=== PATIENT | male | born 1960 | race Caucasian/White ===

== ENCOUNTER → 2021-03-20 08:54 | Outpatient (BNVA) | payer BC, SELFPAY | PROVIDERS: PCP Family Medicine; Visit Provider Internal Medicine Rheumatology | DX: K51.90 Ulcerative colitis, unspecified, without complications (principal); M07.60 Enteropathic arthropathies, unspecified site; Z79.899 Other long term (current) drug therapy; Z11.59 Encounter for screening for other viral diseases; Z11.1 Encounter for screening for respiratory tuberculosis; Z79.1 Long term (current) use of non-steroidal anti-inflammatories (NSAID); Z71.85 Encounter for immunization safety counseling; F17.200 Nicotine dependence, unspecified, uncomplicated | CPT/HCPCS: 99204 ==

== ENCOUNTER 2021-07-18 08:55 | Outpatient (CLI) | payer BC, SELFPAY ==
--- NOTE | 2021-07-18 09:05 | XR_ITS ---
WS: [id number] Lumbar spine with flexion, extension, and neutral lateral, 07/18/2021 Clinical Data: LOW BACK PAIN Comparison: None. Findings: No compression fractures or subluxation is seen. There is disc space narrowing at all lumbar levels. There is anterior osteoarthritic change L3-L5. No limitation of motion or subluxation is seen. XR/XR lumbar spine f/e only [id number] Impression: 1. Minimal degenerative disc narrowing at all levels. 2. Osteoarthritis L3-L5. 3. No limitation of motion or subluxation on flexion or extension.
--- NOTE | 2021-07-18 09:06 | XR_ITS ---
WS: [id number] Right ankle, 3 views, 07/18/2021 Clinical Data: PAIN IN RIGHT ANKLE Comparison: None. Findings: No fractures or dislocations are seen. There is osteoarthritic change of the right ankle with asymmet ry of the joint space. The anterior and posterior distal tibia shows a prominent spur. The lateral po rtion of the right ankle joint shows elevation compared to the medial portion. There is osteoarthrit ic spurring anteriorly, posteriorly and medially of the talus. There is an Achilles spur. The soft ti ssues are normal. XR/XR ankle RT min 3V* [id number] Impression: Moderate osteoarthritic change of the ankle joint especially spurring of the di stal tibia and the articular portions of the talus.
== END 2021-07-18 08:56 | disposition home or self-care (01) ==
LOC: RAD 08:57
PROVIDERS: PCP Family Medicine; Visit Provider Anesthesiology Pain Medicine
DX: M54.51 Vertebrogenic low back pain (principal); M25.571 Pain in right ankle and joints of right foot; M47.816 Spondylosis without myelopathy or radiculopathy, lumbar region
CPT/HCPCS: 72120; 73610

== ENCOUNTER → 2021-09-11 07:41 | Outpatient (BNVA) | payer BC, SELFPAY | PROVIDERS: PCP Family Medicine; Visit Provider Family Medicine | DX: Z00.00 Encounter for general adult medical examination without abnormal findings (principal); I10 Essential (primary) hypertension; E55.9 Vitamin D deficiency, unspecified; K51.90 Ulcerative colitis, unspecified, without complications; M19.90 Unspecified osteoarthritis, unspecified site; Z11.59 Encounter for screening for other viral diseases; Z79.899 Other long term (current) drug therapy | CPT/HCPCS: 80053; 80061; 82248; 82306; 85025; 86140; 86200; 86431; 86480; 86704; 86803; 87340 ==

== ENCOUNTER → 2022-03-12 13:16 | Outpatient (BNVA) | payer BC, SELFPAY | PROVIDERS: PCP Family Medicine; Visit Provider Family Medicine | DX: K51.90 Ulcerative colitis, unspecified, without complications (principal); M07.60 Enteropathic arthropathies, unspecified site; F98.8 Other specified behavioral and emotional disorders with onset usually occurring in childhood and adolescence; Z00.00 Encounter for general adult medical examination without abnormal findings; Z71.85 Encounter for immunization safety counseling; Z79.899 Other long term (current) drug therapy | CPT/HCPCS: 80053; 85025 ==

== ENCOUNTER → 2022-06-12 15:08 | Outpatient (BNVA) | payer BC, MEDICAID, SELFPAY | PROVIDERS: PCP Family Medicine; Visit Provider Internal Medicine Rheumatology | DX: Z79.899 Other long term (current) drug therapy (principal); M07.60 Enteropathic arthropathies, unspecified site; K51.90 Ulcerative colitis, unspecified, without complications; Z71.85 Encounter for immunization safety counseling | CPT/HCPCS: 36415; 72100; 80076; 82565; 85025; 85378; 86140 ==

== ENCOUNTER 2022-08-08 15:41 | Outpatient (CLI) | payer BC, MEDICAID, SELFPAY ==
--- NOTE | 2022-08-08 15:46 | XR_ITS ---
WS: [id number] EXAMINATION: XR knee LT 3V* [id number] REASON FOR EXAM: knee pain / swelling COMPARISON: None available. ORDER DATE: 08/08/2022 4:02 PM FINDINGS: There are marginal osteophytes associated with the tibial spines, patella and other articular margins with moderate medial and patellofemoral compartment narrowing. There is no sign of any acute fractur e or dislocation. XR/XR knee LT 3V* [id number] IMPRESSION: MEDIAL AND PATELLOFEMORAL COMPARTMENT NARROWING WITH OSTEOARTHRITIC CHANGES.
== END 2022-08-08 15:42 | disposition home or self-care (01) ==
LOC: RAD 15:46
PROVIDERS: PCP Family Medicine; Visit Provider Internal Medicine Rheumatology
DX: M17.12 Unilateral primary osteoarthritis, left knee (principal)
CPT/HCPCS: 73562

== ENCOUNTER 2022-11-28 16:03 | Outpatient (CLI) | payer BC, MEDICAID, SELFPAY ==
[2022-11-28 17:11] LABS: Basophils % 0.3 %; Eosinophils # 0.1 10^3/uL (0.0-0.8); Eosinophils % 0.9 %; Hematocrit 48.2 % (42.0-52.0); Hemoglobin 15.9 g/dL (11.7-16.6); Lymphocytes # 2.5 10^3/uL (0.8-4.8); Mean Corpuscular Volume 90.9 fl (80-94); Monocytes # 0.7 10^3/uL (0.2-0.9); Monocytes % 7.1 %; Neutrophils # 6.71 10^3/uL (1.8-7.7); Neutrophils % 66.4 %; Nucleated Red Blood Cells % 0 %; Platelet Count 308 10^3/cmm (130-400); Red Cell Distribution Width 12.4 % (12.1-15.1); White Blood Count 10.1 10^3/uL (4.0-10.0)
[2022-11-28 17:22] LABS: Alanine Aminotransferase 21 U/L (0-41); Albumin Level 4.3 g/dL (3.5-5.2); Alkaline Phosphatase 84 U/L (40-130); Aspartate Amino Transferase 17 U/L (0-40); C Reactive Protein 3.1 mg/L (0.0-4.9); Globulin 2.8 g/dL (1.3-4.6); Total Bilirubin 0.2 mg/dL (0.15-1.2); Total Protein 7.1 g/dL (6.6-8.7)
== END 2022-11-28 16:04 | disposition home or self-care (01) ==
PROVIDERS: PCP Family Medicine; Visit Provider Internal Medicine Rheumatology
DX: M07.60 Enteropathic arthropathies, unspecified site (principal); Z79.899 Other long term (current) drug therapy
CPT/HCPCS: 36415; 80076; 82565; 85025; 86140

== ENCOUNTER → 2023-04-16 15:52 | Outpatient (BNVA) | payer BC, MEDICAID, SELFPAY | PROVIDERS: PCP Family Medicine; Visit Provider Internal Medicine Rheumatology | DX: M25.562 Pain in left knee (principal); Z79.899 Other long term (current) drug therapy; M07.60 Enteropathic arthropathies, unspecified site | CPT/HCPCS: 36415; 73070; 73562; 73610; 80076; 82565; 85025; 85651; 86140 ==

== ENCOUNTER 2023-06-30 08:44 | Outpatient (CLI) | payer BC, MEDICAID, SELFPAY ==
[2023-06-30 09:26] LABS: Basophils % 0.4 %; Eosinophils # 0.1 10^3/uL (0.0-0.8); Eosinophils % 0.8 %; Hematocrit 46.9 % (37-53); Lymphocytes # 2.2 10^3/uL (0.8-4.8); Lymphocytes % 31.3 %; Mean Corpuscular HGB Conc 33.7 g/dL (30-55); Mean Corpuscular Hemoglobin 30.3 pg (27-33); Mean Corpuscular Volume 89.8 fl (82-101); Mean Platelet Volume 8.9 fL (7.4-10.4); Monocytes # 0.5 10^3/uL (0.2-0.9); Monocytes % 6.5 %; Neutrophils # 4.32 10^3/uL (1.8-7.7); Neutrophils % 60.6 %; Nucleated Red Blood Cells % 0 %; Platelet Count 324 10^3/cmm (157-399); Red Blood Count 5.22 10^6/uL (3.85-5.65); Red Cell Distribution Width 13.2 % (12.1-15.1); White Blood Count 7.13 10^3/uL (3.29-11.43)
[2023-06-30 09:43] LABS: Alanine Aminotransferase 25 U/L (0-41); Albumin Level 4.2 g/dL (3.5-5.2); Alkaline Phosphatase 128 U/L (40-130); Aspartate Amino Transferase 18 U/L (0-40); Globulin 3.2 g/dL (1.3-4.6); Total Bilirubin 0.2 mg/dL (0.15-1.2); Total Protein 7.4 g/dL (6.6-8.7)
== END 2023-06-30 08:45 | disposition home or self-care (01) ==
LOC: LAB 08:51
PROVIDERS: PCP Family Medicine; Visit Provider Internal Medicine Rheumatology
DX: Z79.899 Other long term (current) drug therapy (principal); M07.60 Enteropathic arthropathies, unspecified site
CPT/HCPCS: 36415; 80076; 82565; 85025; 86140

== ENCOUNTER 2023-11-27 09:45 | Outpatient (CLI) | payer BC, MEDICAID, SELFPAY ==
[2023-11-27 10:11] LABS: Basophils % 0.4 %; Eosinophils # 0.1 10^3/uL (0.0-0.8); Eosinophils % 0.7 %; Lymphocytes # 2.2 10^3/uL (0.8-4.8); Lymphocytes % 23.3 %; Mean Corpuscular HGB Conc 33.4 g/dL (30-55); Mean Corpuscular Hemoglobin 30.6 pg (27-33); Mean Corpuscular Volume 91.6 fl (82-101); Mean Platelet Volume 9.4 fL (7.4-10.4); Monocytes # 0.7 10^3/uL (0.2-0.9); Monocytes % 7.8 %; Neutrophils # 6.28 10^3/uL (1.8-7.7); Neutrophils % 67.4 %; Nucleated Red Blood Cells % 0 %; Platelet Count 295 10^3/cmm (157-399); Red Blood Count 5.13 10^6/uL (3.85-5.65); Red Cell Distribution Width 12.7 % (12.1-15.1); White Blood Count 9.34 10^3/uL (3.29-11.43)
[2023-11-27 10:38] LABS: Alanine Aminotransferase 20 U/L (0-41); Albumin Level 4.3 g/dL (3.5-5.2); Alkaline Phosphatase 81 U/L (40-130); Aspartate Amino Transferase 15 U/L (0-40); C Reactive Protein 5.3 mg/L (0.0-4.9); Globulin 3.2 g/dL (1.3-4.6); Glomerular Filtration Rate 98.3 mL/min (90-130); Total Bilirubin 0.4 mg/dL (0.15-1.2); Total Protein 7.5 g/dL (6.6-8.7)
== END 2023-11-27 09:46 | disposition home or self-care (01) ==
PROVIDERS: PCP Family Medicine; Visit Provider Internal Medicine Rheumatology
DX: Z79.899 Other long term (current) drug therapy (principal); M07.60 Enteropathic arthropathies, unspecified site
CPT/HCPCS: 36415; 80076; 82565; 85025; 86140

== ENCOUNTER 2023-12-16 06:57 | Outpatient (CLI) | payer BC, MEDICAID, SELFPAY ==
--- NOTE | 2023-12-16 07:15 | US_ITS ---
WS: [id number] Complete ABDOMINAL ULTRASOUND HISTORY: R10.9 - Unspecified abdominal pain COMPARISON: None available. Liver: 16.0 cm in length. Normal size liver and echogenicity. No bile duct dilatation or mass. Portal Vein: Normal hepatopetal flow with monophasic waveform. Gallbladder: Normally distended gallbladder with no stones or wall thickening. CBD: 0.4 cm Pancreas: Poorly visualized due to bowel gas. Right kidney: 12.3 cm x 5.3 x 5.3 cm. Cortex:1.1 cm. Normal size and echogenicity. No hydronephrosis or mass. Left kidney: 12.7 cm x 5.3 cm x 4.0 cm. Cortex: 1.4 cm. Normal size kidney. There is a cortical cyst in the mid kidney measuring 2.4 x 2.7 x 1.8 cm. No solid mass or obstruction. Spleen: 9.0 cm. Normal size and echogenicity. Aorta and IVC: Unremarkable abdominal aorta and IVC. US/US abdomen complete* [id number] Impression: 1. Normal gallbladder. 2. No hepatobiliary duct dilatation. 3. Simple cyst LEFT kidney, maximal diameter of 2.7 cm. 4. No hydronephrosis. 5. Poorly visualized pancreas.
== END 2023-12-16 06:58 | disposition home or self-care (01) ==
LOC: RAD 06:57
PROVIDERS: PCP Family Medicine; Visit Provider Internal Medicine Rheumatology
DX: R10.9 Unspecified abdominal pain (principal); G89.29 Other chronic pain; N28.1 Cyst of kidney, acquired
CPT/HCPCS: 76700

== ENCOUNTER 2024-04-05 08:26 | Outpatient (CLI) | payer BC, MEDICAID, SELFPAY ==
[2024-04-05 08:50] LABS: Basophils % 0.4 %; Eosinophils # 0.1 10^3/uL (0.0-0.8); Eosinophils % 1.2 %; Hematocrit 46.6 % (37-53); Lymphocytes # 2.5 10^3/uL (0.8-4.8); Lymphocytes % 32.3 %; Mean Corpuscular HGB Conc 33.5 g/dL (30-55); Mean Corpuscular Hemoglobin 30.8 pg (27-33); Mean Corpuscular Volume 92.1 fl (82-101); Monocytes # 0.6 10^3/uL (0.2-0.9); Monocytes % 7.8 %; Neutrophils # 4.42 10^3/uL (1.8-7.7); Nucleated Red Blood Cells % 0 %; Platelet Count 284 10^3/cmm (157-399); Red Blood Count 5.06 10^6/uL (3.85-5.65); Red Cell Distribution Width 12.6 % (12.1-15.1); White Blood Count 7.61 10^3/uL (3.29-11.43)
[2024-04-05 08:59] LABS: Erythrocyte Sedimentation Rate 12 mm/hr (0-10)
[2024-04-05 09:04] LABS: Alanine Aminotransferase 22 U/L (0-41); Alkaline Phosphatase 82 U/L (40-130); Aspartate Amino Transferase 19 U/L (0-40); C Reactive Protein 5.5 mg/L (0.0-4.9); Globulin 3.1 g/dL (1.3-4.6); Glomerular Filtration Rate 98.3 mL/min (90-130); Total Bilirubin 0.4 mg/dL (0.15-1.2); Total Protein 7.1 g/dL (6.6-8.7)
== END 2024-04-05 08:27 | disposition home or self-care (01) ==
PROVIDERS: PCP Family Medicine; Visit Provider Internal Medicine Rheumatology
DX: Z79.899 Other long term (current) drug therapy (principal); M07.60 Enteropathic arthropathies, unspecified site
CPT/HCPCS: 36415; 80076; 82565; 85025; 85651; 86140

== ENCOUNTER 2024-06-14 06:32 | Emergency (ER) | payer BC, MEDICAID, SELFPAY ==
[2024-06-14] VITALS (7 sets, daily range): BP systolic 126–163; BP diastolic 79–111; PULSE 62–78; RESP 18; TEMP 36.7; O2SAT 89–97; BMI 35.5
--- NOTE | 2024-06-14 06:55 | XRR_ITS ---
PROCEDURE INFORMATION: Exam: XR Left Ribs with PA Chest Exam date and time: 06/14/2024 7:34 AM Age: 63 years old Clinical indication: Chest wall pain; Right; Additional info: Chest x-ray with L ribs TECHNIQUE: Imaging protocol: Radiologic exam of the left ribs with PA chest. Views: 3 views COMPARISON: No relevant prior studies available. FINDINGS: Lungs: There is minimal linear scarring or atelectasis at the left lung base. Pleural spaces: Unremarkable. No pleural effusion. No pneumothorax. Heart/Mediastinum: The heart is borderline enlarged. Bones/joints: No definite acute rib fractures are noted on the left. XR/XR ribs LT mn 3V w CXR1V [id number] IMPRESSION: 1. No definite rib fractures noted on the left. If there is a strong clinical concern, CT may add additional information.
--- NOTE | 2024-06-14 06:55 | W.ED.FALL ---
HPI - Fall General: Chief Complaint: Fall Stated Complaint: Fell off ladder Time Seen by Provider: 06/14/24 06:41 History of Present Illness: 63-year-old male presents emergency room he fell off a ladder 2 days ago he is complaining of left lower rib pain worse when he takes a deep breath or moves. He denies any vomiting or diarrhea did not strike his head did not lose consciousness immediately after he fell he was able to get up. It the patient is bit worse today he states he fell. No blood in the urine he has not noticed any specific abdominal pain other than proximity of the rib pain to his abdomen on the lower left side. He denies neck or back pain. Patient took hydrocodone at home. Associated symptoms-after fall: Reports chest pain (Left lower rib pain); Denies abdominal pain or neck pain Related Data Home Medications ?Medication ?Instructions ?Recorded ?Confirmed hydrocodone 10 mg-acetaminophen 1 tab PO Q8H PRN Pain 03/19/21 06/14/24 325 mg tablet hydrochlorothiazide 25 mg tablet 25 mg PO DAILY 06/14/24 06/14/24 sertraline 100 mg tablet 200 mg PO DAILY 06/14/24 06/14/24 tizanidine 4 mg tablet 4 mg PO DAILY 06/14/24 06/14/24 trazodone 100 mg tablet 200 mg PO QPM 06/14/24 06/14/24 Previous Rx's ?Medication ?Instructions ?Recorded mesalamine 1.2 gram tablet,delayed 2.4 g (2 x 1.2 gram) PO .QPM #60 03/12/22 release tabs losartan 100 mg tablet 100 mg PO DAILY #90 tabs 11/12/23 zolpidem 10 mg tablet (Ambien) 10 mg PO ONCE #30 tabs 02/06/24 dextroamphetamine-amphetamine 20 20 mg PO BID 1 month #60 tabs 05/12/24 mg tablet (Adderall) etanercept 50 mg/mL (1 mL) 50 mg SUBCUT Q7D #4 mL 06/07/24 subcutaneous pen injector (Enbrel SureClick) prednisone 20 mg tablet See Rx Instructions PO .COMPLEX 06/07/24 PRN joint pain flare #30 tabs Allergies Allergy/AdvReac Type Severity Reaction Status Date / Time Penicillins Allergy Unknown Verified 06/14/24 06:40 Review of Systems Const: Denies: fever(s) or chills Card: Reports: chest pain (Left lower rib pain) Resp: Denies: dyspnea GI: Denies: abdominal pain : Denies: dysuria, urinary frequency or urinary urgency Musc: Denies: neck pain or back pain Skin/Breast: Denies: rash PFSH ED PFSH: Medical History Insomnia Depression Chronic back pain ADD (attention deficit disorder) Hypertension Joint pain Kidney stone Ulcerative colitis Immunization counseling High risk medication use Enteropathic arthritis Family History Other Cancer Crohn's disease Hyperlipidemia Denies family history of Rheumatoid arthritis Diabetes Lupus CAD (coronary artery disease) Chronic kidney disease (CKD) Lung disease Hypertension Stroke Social History Smoking and tobacco/nicotine status: current every day tobacco/nicotine user cigarettes Packs smoked per day: 0.5 Alcohol intake: never 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 Exquisitely tender to touch. No rash. Resp: COMMON NORMALS: normal respiratory effort, No retractions, No use of accessory muscles and clear to auscultation bilaterally AUSCULTATION: clear to auscultation bilaterally Cardio: COMMON NORMALS: regular rate, regular rhythm and No murmurs present (Cardio) RATE: regular rate RHYTHM: regular rhythm GI: COMMON NORMALS: Soft to palpation and No hepatosplenomegaly present AUSCULTATION: Yes normoactive bowel sounds PALPATION: Yes Soft to palpation, No Tenderness to palpation present (GI), No Guarding due to palpation present (GI) and Yes No hepatosplenomegaly present Extremity: COMMON NORMALS: normal to inspection, capillary refill normal, no clubbing, cyanosis or edema, no calf tenderness and no pedal edema Neuro: SENSORIUM/ORIENTATION: Yes oriented to person, Yes oriented to place and Yes oriented to time Skin: COMMON NORMALS: no rashes or lesions noted GENERAL SKIN EXAM: no rashes or lesions noted Course Vital Signs: Vital signs: Vital Signs Temperature 98.0 F 06/14/24 06:39 Pulse Rate 63 06/14/24 09:54 Respiratory Rate 18 06/14/24 09:21 Blood Pressure 153/92 06/14/24 09:54 Pulse Oximetry 96 06/14/24 09:54 Oxygen Delivery Me thod Room Air 06/14/24 09:51 MDM - Fall Medical Decision Making Imaging negative. Patient was noted to have hypokalemia we have ordered liquid oral potassium he declined and preferred pills he is given 60 p.o. encouraged him to follow-up with his primary care doctor to recheck in the next 5 to 7 days. Patient given pain medications for his rib pain which she declined he gets prescription narcotics from pain clinic. Can apply ice to the area supplement with ibuprofen or Aleve as needed. Medical Records I reviewed the patient's medical records. Lab Data I reviewed the patient's lab results. 06/14/24 07:20 06/14/24 07:20 Radiology Impressions Ribs X-Ray 06/14/24 06:55 IMPRESSION: 1. No definite rib fractures noted on the left. If there is a strong clinical concern, CT may add additional information. Laboratory Results WBC 9.82 10^3/uL (3.29-11.43) 06/14/24 07:20 RBC 4.62 10^6/uL (3.85-5.65) 06/14/24 07:20 Hgb 13.90 g/dL (11.27-16.99) 06/14/24 07:20 Hct 42.4 % (37-53) 06/14/24 07:20 MCV 91.8 fl (82-101) 06/14/24 07:20 MCH 30.1 pg (27-33) 06/14/24 07:20 MCHC 32.8 g/dL (30-55) 06/14/24 07:20 RDW 13.2 % (12.1-15.1) 06/14/24 07:20 Plt Count 299 10^3/cmm (157-399) 06/14/24 07:20 MPV 8.9 fL (7.4-10.4) 06/14/24 07:20 Neut % (Auto) 61.6 % 06/14/24 07:20 Lymph % (Auto) 29.4 % 06/14/24 07:20 Davis % (Auto) 7.0 % 06/14/24 07:20 Eos % (Auto) 1.2 % 06/14/24 07:20 Baso % (Auto) 0.4 % 06/14/24 07:20 Neut # (Auto) 6.04 10^3/uL (1.8-7.7) 06/14/24 07:20 Lymph # (Auto) 2.9 10^3/uL (0.8-4.8) 06/14/24 07:20 Davis # (Auto) 0.7 10^3/uL (0.2-0.9) 06/14/24 07:20 Eos # (Auto) 0.1 10^3/uL (0.0-0.8) 06/14/24 07:20 Baso # (Auto) 0.0 10^3/uL (0.0-0.1) 06/14/24 07:20 Nucleated RBC % (auto) 0 % 06/14/24 07:20 Nucleated RBCs # 0.0 /100WBC 06/14/24 07:20 Sodium 138 mmol/L (136-145) 06/14/24 07:20 Potassium 2.9 mmol/L (3.5-5.1) L 06/14/24 07:20 Chloride 98 mmol/L (98-107) 06/14/24 07:20 Carbon Dioxide 29 mmol/L (22-29) 06/14/24 07:20 Anion Gap 13.9 (5-19) 06/14/24 07:20 BUN 20 mg/dL (8-23) 06/14/24 07:20 Creatinine 0.7 mg/dL (0.7-1.2) 06/14/24 07:20 GFR Calculation 114.6 mL/min (90-130) 06/14/24 07:20 Glucose 107 mg/dL (65-115) 06/14/24 07:20 Calculated Osmolality 289 mOsm/kg (285-295) 06/14/24 07:20 Calcium 8.7 mg/dL (8.5-10.5) 06/14/24 07:20 Total Bilirubin 0.2 mg/dL (0.15-1.2) 06/14/24 07:20 AST 13 U/L (0-40) 06/14/24 07:20 ALT 16 U/L (0-41) 06/14/24 07:20 Alkaline Phosphatase 98 U/L (40-130) 06/14/24 07:20 Total Protein 6.5 g/dL (6.6-8.7) L 06/14/24 07:20 Albumin 3.6 g/dL (3.5-5.2) 06/14/24 07:20 Globulin 2.9 g/dL (1.3-4.6) 06/14/24 07:20 Urine Color Yellow (Yellow) 06/14/24 07:59 Urine Appearance Clear (CLEAR) 06/14/24 07:59 Urine pH 5.5 (5-7) 06/14/24 07:59 Ur Specific [place] 1.022 (1.005-1.030) 06/14/24 07:59 Urine Protein Negative (Negative) 06/14/24 07:59 Urine Glucose (UA) Negative (Normal) 06/14/24 07:59 Urine Ketones Trace (Negative) 06/14/24 07:59 Urine Blood Negative (Negative) 06/14/24 07:59 Urine Nitrate Negative (Negative) 06/14/24 07:59 Urine Bilirubin Negative (Negative) 06/14/24 07:59 Urine Urobilinogen 0.2 mg/dL (Negative) 06/14/24 07:59 Ur Leukocyte Esterase Negative (Negative) 06/14/24 07:59 Urine RBC 0-2 /hpf (0-2) 06/14/24 07:59 Urine WBC 0-5 /hpf (0-5) 06/14/24 07:59 Ur Squamous Epith Cells 0-5 /hpf (0-5) 06/14/24 07:59 Amorphous Sediment Not Reportable 06/14/24 07:59 Urine Bacteria None seen /hpf (NONE) 06/14/24 07:59 Hyaline Casts 0.40 /lpf 06/14/24 07:59 All radiology interpretation(s) finalized by discharge Discharge Plan Discharge Patient Disposition: Home Clinical Impression: Contusion of rib on left side Qualifiers: Encounter type: initial encounter Qualified Code(s): S20.212A - Contusion of left front wall of thorax, initial encounter Fall on and from ladder causing accidental injury Qualifiers: Qualified Code(s): W11.XXXA - Fall on and from ladder, initial encounter Condition: Stable Prescriptions: No Action hydrocodone-acetaminophen 10-325 mg tablet 1 tab PO Q8H PRN (Reason: Pain) mesalamine 1.2 gram tablet,delayed release (DR/EC) 2.4 g PO .QPM Qty: 60 11RF Enbrel SureClick 50 mg/mL (1 mL) pen injector 50 mg SUBCUT Q7D Qty: 4 5RF prednisone 20 mg tablet See Rx Instructions PO .COMPLEX PRN (Reason: joint pain flare) Qty: 30 1RF Rx Instructions: take 2 tab daily for up to 7 days as needed for arthritis flare PO PRN; losartan 100 mg tablet 100 mg PO DAILY Qty: 90 3RF zolpidem [Ambien] 10 mg tablet 10 mg PO ONCE Qty: 30 5RF dextroamphetamine-amphetamine [Adderall] 20 mg tablet 20 mg PO BID 30 Days Qty: 60 0RF tizanidine 4 mg tablet 4 mg PO DAILY sertraline 100 mg tablet 200 mg PO DAILY Rx Instructions: TAKE 2 TABLETS BY MOUTH EVERY DAY trazodone 100 mg tablet 200 mg PO QPM Rx Instructions: TAKE 2 TABLETS BY MOUTH AT BEDTIME hydrochlorothiazide 25 mg tablet 25 mg PO DAILY Rx Instructions: TAKE 1 TABLET BY MOUTH EVERY DAY Discharge Orders: Discharge ED (Routine); Ordered 06/14/24 Ordered By: Colt Whitlock Referrals: Bhaskar Hill MD [Primary Care Provider] - Discharge Diet: Usual diet Discharge Activity: Increase activity as tolerated Patient Instructions: Opioid Safety, Pain Management Activity Restrictions/Additional Instructions: Thank you for choosing [facility] for your healthcare needs today. It is very important that you follow up as instructed or that you return to the Emergency Department should you have concerns or if your condition changes or worsens in any way. You were seen in the emergency room with complaints of left lower rib pain after a fall. X-rays did not show distinct fracture chest x-ray. Normal. Hemoglobin was normal your white count was normal urine did not show signs of blood. Your potassium was low you were given a supplement for this she should follow this up with your doctor within the next 2 weeks. You are given a prescription for pain medicine to use as needed. 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
[2024-06-14 07:37] LABS: Basophils % 0.4 %; Eosinophils # 0.1 10^3/uL (0.0-0.8); Eosinophils % 1.2 %; Hematocrit 42.4 % (37-53); Lymphocytes # 2.9 10^3/uL (0.8-4.8); Lymphocytes % 29.4 %; Mean Corpuscular HGB Conc 32.8 g/dL (30-55); Mean Corpuscular Hemoglobin 30.1 pg (27-33); Mean Corpuscular Volume 91.8 fl (82-101); Mean Platelet Volume 8.9 fL (7.4-10.4); Monocytes # 0.7 10^3/uL (0.2-0.9); Neutrophils # 6.04 10^3/uL (1.8-7.7); Neutrophils % 61.6 %; Nucleated Red Blood Cells % 0 %; Platelet Count 299 10^3/cmm (157-399); Red Blood Count 4.62 10^6/uL (3.85-5.65); Red Cell Distribution Width 13.2 % (12.1-15.1); White Blood Count 9.82 10^3/uL (3.29-11.43)
[2024-06-14 07:54] LABS: Alanine Aminotransferase 16 U/L (0-41); Albumin Level 3.6 g/dL (3.5-5.2); Alkaline Phosphatase 98 U/L (40-130); Anion Gap 13.9 (5-19); Aspartate Amino Transferase 13 U/L (0-40); Blood Urea Nitrogen 20 mg/dL (8-23); Calcium 8.7 mg/dL (8.5-10.5); Carbon Dioxide 29 mmol/L (22-29); Chloride 98 mmol/L (98-107); Creatinine Clr Calc Pharmacy 122.5691; Globulin 2.9 g/dL (1.3-4.6); Glomerular Filtration Rate 114.6 mL/min (90-130); Glucose 107 mg/dL (65-115); Osmolality Calculated 289 mOsm/kg (285-295); Sodium 138 mmol/L (136-145); Total Bilirubin 0.2 mg/dL (0.15-1.2); Total Protein 6.5 g/dL (6.6-8.7)
[2024-06-14 08:15] LABS: Bilirubin Urine Negative (Negative); Blood Urine Negative (Negative); Glucose Urine UA Negative (Normal); Ketones Urine Trace (Negative); Leukocyte Esterase Urine Negative (Negative); Nitrate Urine Negative (Negative); Protein Urine Negative (Negative); Specific Gravity, Urine 1.022 (1.005-1.030); Urine Appearance Clear (CLEAR); Urine Color Yellow (Yellow); Urobilinogen Urine 0.2 mg/dL (Negative); pH Urine 5.5 (5-7)
[2024-06-14 08:17] LABS: Add Urine Microscopic? YES; Bacteria Urine None Seen /hpf; RBC Urine 0-2 /hpf (0-2); Squamous Epithelial Cell Urine 0-5 /hpf (0-5); WBC Urine 0-5 /hpf (0-5)
[2024-06-14 08:28] LABS: Potassium 2.9 mmol/L (3.5-5.1)
[2024-06-14] MEDS: morphine 4 mg/mL SDV 1 mL IVP (09:21)
[2024-06-14] MEDS: ondansetron 2 mg/ML SDV 2 mL 4 MG IVP (09:25)
[2024-06-14] MEDS: potassium chloride ER 20 mEq Tablet 60 MEQ PO (09:46)
== END 2024-06-14 09:54 | disposition home or self-care (01) ==
PROVIDERS: Emergency Provider Family Medicine; PCP Family Medicine
DX: S20.212A Contusion of left front wall of thorax, initial encounter (principal); W11.XXXA Fall on and from ladder, initial encounter; F17.210 Nicotine dependence, cigarettes, uncomplicated; I10 Essential (primary) hypertension
CPT/HCPCS: 36415; 71101; 80053; 81001; 85025; 96374; 96375; 99284; J2270; J2405

== ENCOUNTER → 2024-06-21 13:06 | Outpatient (BNVA) | payer BC, MEDICAID, SELFPAY | PROVIDERS: PCP Family Medicine; Visit Provider Family Medicine | DX: E87.6 Hypokalemia (principal) | CPT/HCPCS: 80048 ==

== ENCOUNTER 2024-11-22 15:04 | Outpatient (CLI) | payer BC, MEDICAID, SELFPAY ==
[2024-11-22 15:26] LABS: Hematocrit 45.3 % (37-53); Hemoglobin 15.20 g/dL (11.27-16.99); Mean Corpuscular HGB Conc 33.6 g/dL (30-55); Mean Corpuscular Hemoglobin 30.2 pg (27-33); Mean Corpuscular Volume 89.9 fl (82-101); Nucleated Red Blood Cells % 0 %; Platelet Count 319 10^3/cmm (157-399); Red Blood Count 5.04 10^6/uL (3.85-5.65); White Blood Count 9.31 10^3/uL (3.29-11.43)
[2024-11-22 15:52] LABS: Alanine Aminotransferase 21 U/L (0-41); Albumin Level 4.3 g/dL (3.5-5.2); Alkaline Phosphatase 88 U/L (40-130); Aspartate Amino Transferase 17 U/L (0-40); Globulin 3.2 g/dL (1.3-4.6); Total Protein 7.5 g/dL (6.6-8.7)
== END 2024-11-22 15:05 | disposition home or self-care (01) ==
LOC: LAB 15:08
PROVIDERS: PCP Family Medicine; Visit Provider Internal Medicine Rheumatology
DX: M07.60 Enteropathic arthropathies, unspecified site (principal); Z79.899 Other long term (current) drug therapy
CPT/HCPCS: 80076; 82565; 85025; 85651; 86140

== ENCOUNTER 2025-03-21 05:21 | Emergency (ER) | payer BC, SELFPAY ==
--- OUTSIDE RECORDS SUMMARY | 2020-08-25 07:30 | XMS_ITS | Continuity of Care Document ---
Author Organization [employer] Address [address] [place] [address] Phone Care Team Providers Care Early Morning Name Role Phone Vivek Kang OD Unavailable Unavailable Allergies, Adverse Reactions, Alerts Substance Reaction Status Criticality PENICILLIN Active No Information Medications Medication Instructions Dosage Effective Dates (start - stop) Status Comments Enbrel 25 mg/0.5 mL (0.5 mL) subcutaneous syringe inject 1 milliliter by subcutaneous route every week using 2 separate injection sites 50 MG - Active trazodone 100 mg tablet take 1 tablet by oral route every day after meals 100 MG - Active losartan 100 mg tablet take 1 tablet by oral route every day 100 MG - Active hydrochlorothiazide 25 mg tablet take 1 tablet by oral route every day 25 MG - Active mesalamine 1.2 gram tablet,delayed release take 2 tablet by oral route every day with a meal 2.4 G - Active Ambien 10 mg tablet take 1 tablet by oral route every day at bedtime 10 MG - Active Procedures Procedure Date Scan Computerized; Retina New Pt Complete Advance Directives Directive Yes / No Effective Date File Name No Information Encounters Encounter Description Practice Location Reason(s) For Visit Diagnoses Date Provider [facility], [address] [place] [address], [place], [place], [id number], [place] tel:[phone] [facility] Dry eyes (chief complaint) Puckering of macula, right eyeOther secondary cataract, right eye [address] [facility] [address], [place], [place], [id number], [place]. tel:[phone] Family History Family Member Type Diagnosis Age At Onset Problem Family history of hypertensi on Problem Family history of Arthritis Payers Payer name Insurance type Covered constitution party ID Marin argueta(s) [facility] [id number] Social History Type Description Quantity Date Captured Comments Alcohol Use Details Unknown Caffeine Use Details Unknown Tobacco Use Status Moderate cigarette smoker (10-19 cigs/day) Smoking Status Heavy tobacco smoker Smoking Tobacco Use Details Cigarette: No Details Available Cigarette: 0.5 Packs per day, Sex Male Chief Complaint And Reason For Visit From encounter dated '08/25/2020 13:30'. Dry eyes (chief complaint) Plan Of Treatment Date Type Action Status Goal Tobacco cessation counseling completed History Of Present Illness Encounter Date Complaint History Of Prese nt Illness Dry eyes The 59 year old male presents for evaluation of Dry eyes in [facility]. He states upon waking up his eyes feel very dry. He does not currently use AT on a regular basis. He has noticed a change in his vision, DVA. Instructions Date Instruction Additional Infor robert Impression/Plan - Di scussed findings with patient. Monitor Related to Puckering of macula, right eye Impression/Plan - Th e risks and benefits of YAG Capsulotomy were discussed as were post-op restrictions and likelihood of increased floaters postoperatively which may require additional treatment. The patient elects to monitor. Will consult with MD in [place] Related to Other secondary cataract, right eye Assessments Type Assessment Date assessment Puckering of macula, right eye A impression Puckering of macula, right eye: H35.371 assessment Other secondary cataract, right eye impression Other secondary cataract, right eye: H26.491
--- OUTSIDE RECORDS SUMMARY | 2024-08-18 14:48 | XMS_ITS | Continuity of Care Document ---
Author Organization [facility] Address [address] [place] [address] Phone Care Team Providers Care Director Camp Name Role Phone Reji MORENO, Michael Unavailable Unavailab le Advance Directives Directive Yes / No Effective Date File Name No Information Encounters Encounter Description Practice Location Reason(s) For Visit Diagnoses Date Provider Providers Copied on Encounter [facility], [address] [place], [id number], [place] tel:[phone] [facility] Focal Pt No Information Reji Velazco th. [address] [place], [id number], [place]. tel:[phone] Family History Family Member Type Diagnosis Age At Onset No Information Payers Payer name Insurance type Covered constitution party ID Authoriza tion(s) No Information Social History Type Description Quantity Date Captured Comments Sex Female Smoking Status No Information Chief Complaint And Reason For Visit No Information Reason For Referral Reason For Referral No Information History Of Present Illness Encounter Date Complaint History Of Prese nt Illness No Information Functional Status Date Functional Assessmen t No Information Instructions Date Instruction Additional Infor mation No Information Assessments Type Assessment Date No Information Patient Care Teams Name Effective Dates (start - stop) Status Members No Information
[2025-03-21 05:25] VITALS: BP 163/91; PULSE 71; RESP 17; TEMP 36.4; O2SAT 96; BMI 37.1
--- OUTSIDE RECORDS SUMMARY | 2025-03-21 05:27 | XMS_ITS | Patient Health Record ---
Author Organization [facility] Address [address] [place] [address] Care Team Providers Care Control Operator Flow Coat Name Role Phone Bhaskar Hill Primary Care Provider Palma Cervantes Unavailable Allergies Allergen (clinical drug ingredient) Drug/Non Drug Allergy documented on EMR Reaction Allergy Type Onset Date Status Penicillin Unknown Drug Allergy Active Results Component Value Reference Range Flag Notes Urine Confirmation Panel (in strument) - [id number] Reviewed date:02/16/2025 09:53:27 AM Interpretation: Performing Lab: Notes/Report: 6-Acetylmorphine 0 <6 ng/mL N This aaron t was developed and its performance characteristics determined by [facility]. It has not been cleared or approved by the U.S. Food and Drug Administration. 7-Aminoclonazepam 0 <60 ng/mL N This te st was developed and its performance characteristics determined by [facility]. It has not been cleared or approved by the U.S. Food and Drug Administration. Alprazolam 0 <60 ng/mL N This test was developed and its performance characteristics determined by [facility]. It has not been cleared or approved by the U.S. Food and Drug Administration. Amphetamine 4769 <75 ng/mL H This test was developed and its performance characteristics determined by [facility]. It has not been cleared or approved by the U.S. Food and Drug Administration. aOH-Alprazolam 0 <60 ng/mL N This test was developed and its performance characteristics determined by [facility]. It has not been cleared or approved by the U.S. Food and Drug Administration. Buprenorphine 0.0 <7.5 ng/mL N This test w as developed and its performance characteristics determined by [facility]. It has not been cleared or approved by the U.S. Food and Drug Administration. Norbuprenorphine 0.0 <37.5 ng/mL N This te st was developed and its performance characteristics determined by [facility]. It has not been cleared or approved by the U.S. Food and Drug Administration. Carisoprodol 0 <75 ng/mL N This test wa s developed and its performance characteristics determined by [facility]. It has not been cleared or approved by the U.S. Food and Drug Administration. Codeine 0 <75 ng/mL N This test was developed and its performance characteristics determined by [facility]. It has not been cleared or approved by the U.S. Food and Drug Administration. EDDP 0 <75 ng/mL N This test was developed and its performance characteristics determined by [facility]. It has not been cleared or approved by the U.S. Food and Drug Administration. Fentanyl 0 <6 ng/mL N This test was developed and its performance characteristics determined by [facility]. It has not been cleared or approved by the U.S. Food and Drug Administration. Hydrocodone 2700 <75 ng/mL H This test was developed and its performance characteristics determined by [facility]. It has not been cleared or approved by the U.S. Food and Drug Administration. Hydromorphone 280 <75 ng/mL H This test w as developed and its performance characteristics determined by [facility]. It has not been cleared or approved by the U.S. Food and Drug Administration. Lorazepam 0 <60 ng/mL N This test was developed and its performance characteristics determined by [facility]. It has not been cleared or approved by the U.S. Food and Drug Administration. MDMA 0 <75 ng/mL N This test was developed and its performance characteristics determined by [facility]. It has not been cleared or approved by the U.S. Food and Drug Administration. Meperidine 0.0 <37.5 ng/mL N This test was developed and its performance characteristics determined by [facility]. It has not been cleared or approved by the U.S. Food and Drug Administration. Meprobamate 0 <75 ng/mL N This test was developed and its performance characteristics determined by [facility]. It has not been cleared or approved by the U.S. Food and Drug Administration. Methamphetamine 1 <75 ng/mL N This test was developed and its performance characteristics determined by [facility]. It has not been cleared or approved by the U.S. Food and Drug Administration. Methadone 0 <75 ng/mL N This test was developed and its performance characteristics determined by [facility]. It has not been cleared or approved by the U.S. Food and Drug Administration. Morphine 0 <75 ng/mL N This test was developed and its performance characteristics determined by [facility]. It has not been cleared or approved by the U.S. Food and Drug Administration. Nordiazepam 0 <60 ng/mL N This test was developed and its performance characteristics determined by [facility]. It has not been cleared or approved by the U.S. Food and Drug Administration. Norfentanyl 0 <6 ng/mL N This test was developed and its performance characteristics determined by [facility]. It has not been cleared or approved by the U.S. Food and Drug Administration. Normeperidine 0.0 <37.5 ng/mL N This test was developed and its performance characteristics determined by [facility]. It has not been cleared or approved by the U.S. Food and Drug Administration. O-desmethyltramadol 0 <75 ng/mL N This test was developed and its performance characteristics determined by [facility]. It has not been cleared or approved by the U.S. Food and Drug Administration. Oxazepam 0 <60 ng/mL N This test was developed and its performance characteristics determined by [facility]. It has not been cleared or approved by the U.S. Food and Drug Administration. Oxycodone 0.0 <37.5 ng/mL N This test was developed and its performance characteristics determined by [facility]. It has not been cleared or approved by the U.S. Food and Drug Administration. Oxymorphone 0 <75 ng/mL N This test was developed and its performance characteristics determined by [facility]. It has not been cleared or approved by the U.S. Food and Drug Administration. Phencyclidine 0.0 <7.5 ng/mL N This test w as developed and its performance characteristics determined by [facility]. It has not been cleared or approved by the U.S. Food and Drug Administration. Tapentadol 0.0 <37.5 ng/mL N This test was developed and its performance characteristics determined by [facility]. It has not been cleared or approved by the U.S. Food and Drug Administration. Temazepam 0 <60 ng/mL N This test was developed and its performance characteristics determined by [facility]. It has not been cleared or approved by the U.S. Food and Drug Administration. Tramadol 3 <75 ng/mL N This test was developed and its performance characteristics determined by [facility]. It has not been cleared or approved by the U.S. Food and Drug Administration. Norhydrocodone 3274 <75 ng/mL H This test was developed and its performance characteristics determined by [facility]. It has not been cleared or approved by the U.S. Food and Drug Administration. Noroxycodone 0 <38 ng/mL N This test wa s developed and its performance characteristics determined by [facility]. It has not been cleared or approved by the U.S. Food and Drug Administration. Pregabalin 0 <225 ng/mL N This test was developed and its performance characteristics determined by [facility]. It has not been cleared or approved by the U.S. Food and Drug Administration. Gabapentin 0 <225 ng/mL N This test was developed and its performance characteristics determined by [facility]. It has not been cleared or approved by the U.S. Food and Drug Administration. Benzoylecgonine 0.0 <37.5 ng/mL N This aaron t was developed and its performance characteristics determined by [facility]. It has not been cleared or approved by the U.S. Food and Drug Administration. 4-Hydroxy Xylazine 0 <25 ng/mL N This t est was developed and its performance characteristics determined by [facility]. It has not been cleared or approved by the U.S. Food and Drug Administration. Urine Drug Screen (cup read) - [id number] Reviewed date:02/08/2025 03:53:29 PM Interpretation: Performing Lab: Notes/Report: AMP + OPI + Tox Results Reviewed date:02/16/2025 09:53:27 AM Interpretation: Performing Lab: Notes/Report: Reason For Referral Reason evaluate and treat Diagnosis 1 Other chronic pain ( G89.29) Referral Organization [facility] [place] Referring Provider First Name Bhaskar Referring Provider Last Name Liz Referring Provider Speciality Family Med icine Referred Organization [facility] Referred Provider Aniket Diehl Referred Address [address],[facility],[place],[address],[place] Referred Provider Specialty [facility] General Notes Kaylen Vega 02:42:00 PM CDT > pt brought referral in [facility] office, Referral entered. waiting on more information for referral notes, Kaylen Vega 11/25/2024 04:11:08 PM CDT > pt scheduled, has npp Referral Priority Routine Medications Medication SIG (Take, Route, Frequency, Duration) Notes Start Date End Date Status Sertraline HCl 100 MG Tablet 1 tablet Orally Once a day Active Mesalamine 1.2 GM Tablet Delayed Release 2 tablets with a meal Orally Once a day Active HYDROcodone-Acetaminophen 10-325 MG Tablet 1 tablet as needed Orally every 4-6 hrs; Duration: 30 days As needed Not to exceed 4 per day fill 04/11/25 03/08/2025 05/11/2025 Active HYDROcodone-Acetaminophen 10-325 MG Tablet 1 tablet as needed Orally every 4-6 hrs; Duration: 30 days As needed Not to exceed 4 per day fill 03/12/25 may fill 1-2 days early if closed 03/08/2025 04/11/2025 Active traZODone HCl 100 MG Tablet 1 tablet at bedtime Orally Once a day Active tiZANidine HCl 4 MG Tablet 1 tablet Orally twice a day; Duration: 30 days As needed 02/08/2025 Active tiZANidine HCl 4 MG Tablet 1 tablet Orally twice a day; Duration: 30 days As needed 03/08/2025 Active Zolpidem Tartrate 10 MG Tablet 1 tablet at bedtime as needed Orally Once a day Active Adderall 20 MG Tablet 1 tablet Orally Twice a day Active Valium 5 MG Tablet 1 tablet as needed Orally daily; Duration: 1 days As needed take 1 tab 1 hour before MRI May take second tab on arrival if needed 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 a 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 fill 03/08/25 03/08/2025 Active HYDROcodone-Acetaminophen 10-325 MG Tablet 1 tablet as needed Orally every 6 hrs Active hydroCHLOROthiazide 25 MG Tablet 1 tablet in the morning Orally Once a day Active Gabapentin 300 MG Capsule 1 capsule Oral ly 3 times a day; Duration: 30 days 03/08/2025 Active Losartan Potassium 100 MG Tablet 1 tablet Orally Once a day Active Social History Tobacco Use: Social History Observation Description Date Details (start date - stop date) Current Smoker NA - NA Social History Tobacco Use: Social Info Question Answer Notes Tobacco Control (Standard) Tobacco use: Current smoker How many cigarettes a day do you smoke? 6-10 Additional Details Category Social Info Options Details Miscellaneous: Sexually active: yes painful i ntercourse Sexual abuse: no Drugs/Alcohol: Do you smoke marijuana? De nies Do you drink alcohol? 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33 kg 03/08/2025 Height 66 in 03/08/2025 Weight 230 lbs 03/08/2025 BMI 37.12 kg/m2 03/08/2025 Encounters Encounter Location Date Provider Diagnosis [facility] [address] [address] 03/08/2025 Palma rader Chronic pain syndrome G89.4 ; Enteropathic arthropathies M07.60 ; Myalgia M79.10 ; Lumbosacral spondylosis with radiculopathy M47.27 ; Arthritis M19.90 ; 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 Z79.891 ; Claustrophobia F40.240 and Ulcerative colitis K51.90 [facility] [place] [address] [facility] [place] [address] 02/08/2025 Palma rader Chronic pain syndrome G89.4 ; Spondylosis of lumbosacral region without myelopathy or radiculopathy M47.817 ; Ulcerative colitis K51.90 ; Myalgia M79.10 ; Arthritis M19.90 and residential (current) use of opiate analgesic Z79.891 [facility] [address] [place] [address] 03/09/2025 Palma rader [facility] [address] [place] [address] 02/17/2025 Palma rader Assessments Encounter Date Diagnosis (ICD Code) Assessment Notes Treatment Notes Treatment Clinical Notes Section Notes 03/08/2025 Chronic pain syndrome (ICD-10 - G89.4) 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 He follows with Dr. Braxton, his psych nurse, and gets serial injections in his knee and elbow intermittently. I reviewed his imaging today. He has home exercise program for subacromial impingement as well as core strengthening. He has had left S1 dermatomal distribution burning and cramping sensations with a positive SLR. He continues his home exercise program diligently. He is unable to resolve these symptoms. I suspect he has lumbosacral radiculopathy. He has positive straight leg raise. Today we discussed nerve flossing. It is medically necessary to obtain an MRI L spine for further evaluation. I discussed with him regarding trialing the Hysingla, and he is currently concerned about having access to it and would like to defer. He's requesting a one-time Valium for his MRI L spine due to claustrophobia. We will continue Atlas[place] 10 mg, quantity 120. We will trial Gabapentin 300 mg TID, quantity 90. 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 Counseled him on potential side effects We will also continue his Tizanidine. Last UDS confirmation on 02/08/25 was consistent with prescribed medication. The PDMP was reviewed with no untoward events. The options for treatment were explained in detail, this included PT, medications, injections, lifestyle modifications and exercise. The patient presents to clinic for medication evaluation and management. The patient is stable on their current medication regimen and endorses adequate analgesia, increased ADLs, denies abuse and side effects. A bowel regimen was discussed with the patient. I will see him back in 2 months for medication management. 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 He follows with Dr. Gomes, his psych nurse, and gets injections into his knee and elbow intermittently, and is currently due for a knee injection. I discussed today that he likely has subacromial impingement and axial lower back pain secondary to lumbosacral spondylosis. I provided him a home exercise program for subacromial impingement as well as core strengthening. He has multiple X-rays available at [facility]. We will obtain X-ray records. Ideally, we will have an L spine X-ray as well as for his knee, neck and ankle there. I discussed that we have a professional policy that we only provide 4 tablets of short-acting medication per day. In the past, he was on 5 tablets of Atlasburg 10 mg. We briefly discussed Hysingla extended release formulation. At this time, he's not interested, We can see if his insurance will cover this in the future. PDMP has been reviewed with no untoward events. We will obtain a UDS confirmation as he is establishing care today. I will see him back in 1 month for reevaluation. At that time once we have further imaging, consideration of medial branch blocks. 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 HEP Subacromial and low back pain with log given and explained RECOMMEND URINE TESTING TODAY Urine drug screening will be performed today to monitor compliance with opioid therapy or to serve as a baseline screen for a patient who may be a candidate for opioid therapy in the future, pending UDS results. We will monitor with in-office testing (rapid testing) today and review the results prior to dispensing prescription. All positive results will be sent for quantitative analysis to ensure accuracy and quantify amounts. Any expected positive results that return negative will also be sent for quantitative analysis. Any questionable read or any medication we cannot test for in the office confidently will be sent for quantitative analysis, as well. Patient has been made aware of this policy and agrees to abide by our urine testing policy. 03/08/2025 Otto Vasquez am scribing for Palma Regalado, personally performed the services described in this documentation, as scribed by Otto Mancia, and it is both accurate and complete. Plan Of Treatment Pending Test Test Name Order Date MRI Lumbar Spine w/o Cont-[id number] 03/08/20 25 Next Appt Details Provider Name:Palma White Herlinda, 05/10/2025 08:00:00 AM, [address] [place], [address], Insurance Providers Payer Name Payer Address Payer Phone Subscriber Number Group Number Insured Name Patient Relationship to Insured Coverage Start Date Coverage End Date [employer] [place] [address] [place] [phone] [id number] Bishop Wren Self - patient is the insured Medical (General) History Medical History History ICD Code High Blood Pressure Arthritis Kidney Stones Autoimmune Disorder Surgical History Surgery Date(Month/Year) kidney stones 1994 hernia repair
[2025-03-21 06:04] VITALS: RESP 17; O2SAT 98
[2025-03-21] MEDS: morphine 4 mg/mL SDV 1 mL IM (06:04)
--- NOTE | 2025-03-21 06:11 | W.ED.EXTPRO ---
HPI - Extremity Problem General: Chief complaint: Extremity Problem,Nontraumatic Stated complaint: Left leg Pain Time Seen by Provider: 03/21/25 05:43 History of Present Illness: Patient is a 64M with a history of ulcerative colitis and secondary arthritis presents with several weeks of severe pain radiating down the leg, described as burning in the calf and associated with back pain. Has also been having seemingly non associated L knee pain over the longer term to which he gets intraarticular steroid injections for which seem to mildly help. The pain is persistent, recurring every three hours, and significantly impacts sleep and daily functioning. The patient reports longstanding chronic pain, managed with hydrocodone, and recently started gabapentin, but ran out of medication. There is no history of back or leg surgery, no recent trauma. The patient denies recent urinary problems but has difficulty with bowel movements due to inability to sit for prolonged periods. No fevers, chills, diaphoresis reported. Pain management has been challenging due to limitations with anti-inflammatory medications secondary to ulcerative colitis. He has tried prednisone and other pain medications in the past, with limited relief. Specifically denies urinary retention, fecal incontinence, leg weakness, saddle anesthesia. Associated symptoms: Deny chest pain, fever(s) or rash Related Data Previous Rx's ?Medication ?Instructions ?Recorded mesalamine 1.2 gram tablet,delayed 2.4 g (2 x 1.2 gram) PO .QPM #60 03/12/22 release tabs hydrochlorothiazide 25 mg tablet See Rx Instructions .Route 10/22/24 .COMPLEX #90 tabs tizanidine 4 mg tablet See Rx Instructions .Route 11/25/24 .COMPLEX #56 tabs etanercept 50 mg/mL (1 mL) 50 mg SUBCUT Q7D #4 mL 12/15/24 subcutaneous pen injector (Enbrel SureClick) hydrocodone 10 mg-acetaminophen 1 tab PO Q12H PRN Pain 1 month #60 12/15/24 325 mg tablet tabs naloxone 4 mg/actuation nasal 4 mg intranasal Q2M PRN opioid 12/15/24 spray (Narcan) overdose #1 ea losartan 100 mg tablet See Rx Instructions .Route 12/24/24 .COMPLEX #90 tabs zolpidem 10 mg tablet (Ambien) 10 mg PO ONCE #30 tabs 12/24/24 sertraline 100 mg tablet See Rx Instructions .Route 01/04/25 .COMPLEX #60 tabs prednisone 20 mg tablet See Rx Instructions PO .COMPLEX 01/11/25 PRN joint pain flare #30 tabs trazodone 100 mg tablet See Rx Instructions .Route 01/20/25 .COMPLEX #120 tabs dextroamphetamine-amphetamine 20 20 mg PO BID 1 month #60 tabs 03/01/25 mg tablet (Adderall) cyclobenzaprine 10 mg tablet 10 mg PO TID PRN muscle spasm #30 03/21/25 tabs methylprednisolone 4 mg tablets in See Rx Instructions PO .COMPLEX 03/21/25 a dose pack (Medrol (Keyshawn)) #21 ea oxycodone 5 mg tablet 5 mg PO QID PRN pain #14 tabs 03/21/25 Allergies Allergy/AdvReac Type Severity Reaction Status Date / Time Penicillins Allergy Unknown Verified 06/14/24 06:40 Review of Systems General: Reports: 10 or more systems reviewed and unremarkable except in HPI and below Const: Denies: fever(s) or chills Eyes: Denies: change in vision or eye discharge Card: Denies: chest pain, palpitations or swelling of feet/ankles Resp: Denies: dyspnea or productive cough GI: Denies: abdominal pain or diarrhea : Denies: difficulty urinating Musc: Reports: back pain and extremity pain; Denies: neck pain Skin/Breast: Denies: rash or jaundice Neuro: Denies: headache(s), numbness in extremities or weakness in extremities Cirilo/Lymph: Denies: easy bruising or easy bleeding PFS ED PFSH: Medical History (Updated 03/21/25 @ 05:57 by Guilherme Hernandez DO) Right elbow pain Insomnia Depression Chronic back pain ADD (attention deficit disorder) Hypertension Joint pain Kidney stone Ulcerative colitis Immunization counseling High risk medication use Enteropathic arthritis Family History Other Cancer Crohn's disease Hyperlipidemia Denies family history of Rheumatoid arthritis Diabetes Lupus CAD (coronary artery disease) Chronic kidney disease (CKD) Lung disease Hypertension Stroke Social History Smoking and tobacco/nicotine status: current every day tobacco/nicotine user cigarettes Packs smoked per day: 0.5 Alcohol intake: never 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 head normocephalic, PERRL, moist mucous membranes, no cervical LAD. breathing comfortably on RA, saturating well, clear BL and no adventitious breath sounds, able to speak in full sentences without getting SOB, no signs of respiratory distress. NSR with no murmurs, no leg swelling, 2+ pulses throughout, good cap refill. Abdomen soft, nontender, nondistended, no localizing or peritonitic signs, no overlying skin changes, no CVA ttp. 4 extremities without apparent deformity or injury. no CTL midline tenderness, no stepoffs or deformities, SLR+ on the left, no pain with leg roll, compression into hip socket. 5/5 motor and senation to BL LE, compartments soft. GCS 15, AAOx4, able to answer questions and follow commands appropriately, moving all 4 extremities symmetrically and spontaneoulsy. Normal mood and affect. Course Vital Signs: Vital signs: Vital Signs Temperature 97.5 F L 03/21/25 05:25 Pulse Rate 63 03/21/25 06:20 Respiratory Rate 18 03/21/25 06:20 Blood Pressure 135/88 03/21/25 06:20 Pulse Oximetry 96 03/21/25 06:20 Oxygen Delivery Me thod Room Air 03/21/25 05:25 MDM - Extremity (Nontraumatic) Medical Decision Making -ddx: sciatica, herniated disk, MSK strain, autoinflammatory assoc arthritis, considered but less likely: lumbar vertebral fracture, cauda equina, epidural abscess/hematoma -patient overall well appearing, VSS, no systemic signs of infectino with hx of HLAB27 arthritis, has been on various meds for this, seemingly with subacute onset of herniated disc and assoc lumbosacral radiculopathy/sciatica but without any assoc red flag signs or symptoms on exam, and so shared decision making with patient and , will not obtain imaging or labs, especially since already has an MRI later this week outpatient and will just attempt to treat symptomatically with IM morphine, toradol and a muscle relaxant and will prescribe short term multimodal pain medication and 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 Lab Data Radiology Impressions Lumbar Spine MRI 03/21/25 12:58 IMPRESSION: 1. Disc bulging worse at L4-5 with impingement on the subarticular recess and traversing LEFT greater than RIGHT L5 nerve roots. Mild central canal stenosis. 2. Mild central canal stenosis L2-3 with impingement on the RIGHT subarticular recess. Mild central canal stenosis L3-4. 3. Disc bulging L5-S1 with slight impingement on the traversing RIGHT S1 nerve root. 4. LEFT foraminal protrusion with moderate LEFT L3-4 foraminal narrowing. 5. Moderate LEFT L4-5 foraminal narrowing. 6. Moderate facet arthropathy L4-L5 and L5-S1. No radiology studies performed this visit Discharge Plan Discharge Patient Disposition: Home Clinical Impression: Sciatica of left side Condition: Stable Prescriptions: New oxycodone 5 mg tablet 5 mg PO QID PRN (Reason: pain) Qty: 14 0RF cyclobenzaprine 10 mg tablet 10 mg PO TID PRN (Reason: muscle spasm) Qty: 30 0RF methylprednisolone [Medrol (Keyshawn)] 4 mg tablets,dose pack See Rx Instructions .ROUTE .COMPLEX Qty: 21 0RF Rx Instructions: for 6 days No Action mesalamine 1.2 gram tablet,delayed release (DR/EC) 2.4 g PO .QPM Qty: 60 11RF hydrochlorothiazide 25 mg tablet See Rx Instructions .ROUTE .COMPLEX Qty: 90 3RF Dose Instruction: TAKE 1 TABLET BY MOUTH EVERY DAY Rx Instructions: TAKE 1 TABLET BY MOUTH EVERY DAY tizanidine 4 mg tablet See Rx Instructions .ROUTE .COMPLEX Qty: 56 2RF Dose Instruction: TAKE 1 TABLET BY MOUTH EVERY TWELVE HOURS NEEDED FOR spasm FOR 28 DAYS Rx Instructions: TAKE 1 TABLET BY MOUTH EVERY TWELVE HOURS NEEDED FOR spasm FOR 28 DAYS Enbrel SureClick 50 mg/mL (1 mL) pen injector 50 mg SUBCUT Q7D Qty: 4 5RF hydrocodone-acetaminophen 10-325 mg tablet 1 tab PO Q12H PRN (Reason: Pain) 30 Days Qty: 60 0RF naloxone [Narcan] 4 mg/actuation spray,non-aerosol 4 mg intranasal Q2M PRN (Reason: opioid overdose) Qty: 1 0RF Rx Instructions: spray 1 dose into ONE nostril; alternate nostrils w each dose until help arrives losartan 100 mg tablet See Rx Instructions .ROUTE .COMPLEX Qty: 90 3RF Dose Instruction: TAKE 1 TABLET BY MOUTH EVERY DAY Rx Instructions: TAKE 1 TABLET BY MOUTH EVERY DAY zolpidem [Ambien] 10 mg tablet 10 mg PO ONCE Qty: 30 5RF sertraline 100 mg tablet See Rx Instructions .ROUTE .COMPLEX Qty: 60 11RF Dose Instruction: Take 2 tablets by mouth once daily Rx Instructions: Take 2 tablets by mouth once daily prednisone 20 mg tablet See Rx Instructions PO .COMPLEX PRN (Reason: joint pain flare) Qty: 30 1RF Rx Instructions: take 1 or 2 tab daily for up to 7 days as needed for arthritis flare PO PRN; trazodone 100 mg tablet See Rx Instructions .ROUTE .COMPLEX Qty: 120 3RF Dose Instruction: TAKE 2 TABLETS BY MOUTH ONCE DAILY AT BEDTIME Rx Instructions: TAKE 2 TABLETS BY MOUTH ONCE DAILY AT BEDTIME dextroamphetamine-amphetamine [Adderall] 20 mg tablet 20 mg PO BID 30 Days Qty: 60 0RF Discharge Orders: Discharge ED (Routine); Ordered 03/21/25 Ordered By: Guilherme Hernandez Referrals: Bhaskar Hill MD [Primary Care Provider, Family Practice] Discharge Diet: Advance as tolerated Discharge Activity: Increase activity as tolerated Patient Instructions: Opioid Safety, Pain Management, Patient Portal & [facility] Instructions Activity Restrictions/Additional Instructions: You were seen for your back pain radiating down your left leg, you were evaluated and this was thought to be sciatica, and because you had no concerning signs or symptoms concerning for cord compression or other emergencies you were able to be just treated for your pain from a multimodal approach. Use the Medrol Dosepak as prescribed on the package which is decreasing in dosage every day to taper off of it. Use the muscle relaxant Flexeril, 10 mg every 8 hours as needed. Use the oxycodone codon 5 in addition to your hydrocodone for total of 10 every 4-6 hours as needed. Rest but still do stretches with your left leg and back, alternate heating pads and ice packs 20 minutes at a time every few hours. Follow-up with with your primary care provider for further evaluation and treatment potentially an MRI if this does not get better in the next week. Return to the ED with severe worsening of your pain, urinary retention, fevers, numbness in your thighs, inability to walk, any other emergent concerns. Stand Alone Forms: Work/School Release Print Language: Chadian Coding Level of Care Code ED Electronic [employer] for [employer]
[2025-03-21 06:20] VITALS: BP 135/88; PULSE 63; RESP 18; O2SAT 96
--- NOTE | 2025-03-21 12:58 | MR_ITS ---
WS: [id number] MRI LUMBAR SPINE NONCONTRAST TECHNIQUE: Sagittal T1, T2 and STIR imaging. Axial T1 and T2 imaging. CLINICAL INFORMATION: lUMBOSACRAL SPONDYLOSIS COMPARISON: None. FINDINGS: Mild lumbar curve. No acute compression. Disc bulging worse at L4-5 with impingement on the subarticular recess and traversing LEFT greater than RIGHT L5 nerve roots. Mild central canal stenosis. L1-L2: Mild annular bulging. Slight effacement of ventral thecal sac. Mild facet arthropathy. L2-L3: Mild annular bulging. Mild central canal stenosis. Impingement the RIGHT subarticular recess. Mild facet arthropathy. Mild to moderate RIGHT and mild LEFT foraminal narrowing. L3-L4: Mild annular bulging. Narrowing of the subarticular recess bilaterally. Mild facet arthropathy. LEFT foraminal protrusion impinges the exiting LEFT L3 nerve root with moderate LEFT foraminal narrowing. L4-L5: Mild disc bulging with impingement of the LEFT greater than RIGHT subarticular recess and traversing L5 nerve roots. Mild central canal stenosis. Moderate facet arthropathy. Moderate LEFT and mild RIGHT foraminal narrowing. L5-S1: Mild disc bulge with narrowing of the RIGHT subarticular recess. Slight impingement of traversing RIGHT S1 nerve root. Moderate facet arthropathy. Mild bilateral foraminal narrowing. Visualized pelvic bony structures: Normal. Paravertebral soft tissues: Normal. MR/MR lumbar spine wo con* [id number] IMPRESSION: 1. Disc bulging worse at L4-5 with impingement on the subarticular recess and traversing LEFT greater than RIGHT L5 nerve roots. Mild central canal stenosis . 2. Mild central canal stenosis L2-3 with impingement on the RIGHT subarticular recess. Mild central canal stenosis L3-4. 3. Disc bulging L5-S1 with slight impingement on the traversing RIGHT S1 nerve root. 4. LEFT foraminal protrusion with moderate LEFT L3-4 foraminal narrowing. 5. Moderate LEFT L4-5 foraminal narrowing. 6. Moderate facet arthropathy L4-L5 and L5-S1.
== END 2025-03-21 06:22 | disposition home or self-care (01) ==
PROVIDERS: Emergency Provider Student in an Organized Health Care Education/Training Program; PCP Family Medicine
DX: M54.32 Sciatica, left side (principal); F17.210 Nicotine dependence, cigarettes, uncomplicated; I10 Essential (primary) hypertension
CPT/HCPCS: 72148; 96372; 99284; J1885; J2270

== ENCOUNTER 2025-03-21 12:47 | Outpatient (CLI) | payer BC, SELFPAY ==
[2025-03-21 14:20] LABS: Hematocrit 42.6 % (37-53); Hemoglobin 14.30 g/dL (11.27-16.99); Mean Corpuscular HGB Conc 33.6 g/dL (30-55); Mean Corpuscular Hemoglobin 30.9 pg (27-33); Mean Corpuscular Volume 92.0 fl (82-101); Nucleated Red Blood Cells % 0 %; Platelet Count 248 10^3/cmm (157-399); Red Blood Count 4.63 10^6/uL (3.85-5.65); White Blood Count 8.01 10^3/uL (3.29-11.43)
[2025-03-21 14:54] LABS: Alanine Aminotransferase 20 U/L (0-41); Albumin Level 3.9 g/dL (3.5-5.2); Alkaline Phosphatase 66 U/L (40-130); Aspartate Amino Transferase 12 U/L (0-40); Globulin 2.7 g/dL (1.3-4.6); Total Protein 6.6 g/dL (6.6-8.7)
[2025-03-21 15:05] LABS: Hepatitis B Surface Antigen Non-Reactive (Nonreactive)
== END 2025-03-21 12:48 | disposition home or self-care (01) ==
PROVIDERS: Internal Medicine Rheumatology; PCP Family Medicine; Visit Provider Student in an Organized Health Care Education/Training Program
DX: Z79.899 Other long term (current) drug therapy (principal); R53.82 Chronic fatigue, unspecified
CPT/HCPCS: 80076; 82306; 82565; 85025; 85651; 86140; 86480; 86704; 86803; 87340

== ENCOUNTER 2025-03-31 09:54 | Outpatient (CLI) | payer BC, SELFPAY | END 2025-03-31 09:55 | disposition home or self-care (01) | LOC: RAD 04-01 06:54 | PROVIDERS: PCP Family Medicine; Visit Provider Internal Medicine Rheumatology | DX: Z01.818 Encounter for other preprocedural examination (principal); M54.9 Dorsalgia, unspecified | CPT/HCPCS: 36415; 72110; 73560; 73565; 80053; 81001; 85025 ==

== ENCOUNTER 2025-04-20 06:57 | Outpatient (CLI) | payer BC, SELFPAY ==
--- NOTE | 2025-04-20 07:15 | MR_ITS ---
WS: [id number] MRI LEFT KNEE NONCONTRAST TECHNIQUE: Axial PD, coronal PD fat sat, coronal PD, sagittal PD, and sagittal PD fat-sat images obtained. CLINICAL INFORMATION: M25.562 - Pain in left knee COMPARISON: None. FINDINGS: Advanced tricompartment arthritis. Distal quadriceps and patella tendons are intact. Hypertrophic patella. ACL and PCL are intact. Small suprapatellar effusion with a few rice bodies. Grade 3-4 chondromalacia patella. Hypertrophic changes along the joint line. Normal popliteal fossa. Tear of the posterior horn medial meniscus with blunting. This extends to the meniscal root. Peripheral extrusion of the medial meniscus. Normal lateral collateral ligament. Medial collateral ligament appears intact. Lobulated ganglion cysts along the dorsal surface of the PCL. A few calcified intra-ar ticular loose bodies. Grade 3-4 chondromalacia in the medial and lateral joint compartments. Lobulated ganglion cyst at the fibula head. MR/MR knee LT wo con* [id number] IMPRESSION: 1. Advanced tricompartmental arthritis. 2. ACL and PCL appear intact. 3. Tear of the posterior horn medial meniscus extending to the meniscal root. Peripheral extrusion of the medial meniscus. 4. Small suprapatellar effusion with a few rice bodies. This can be seen with rheumatoid arthritis. 5. Lobulated ganglion cysts along the dorsal joint. A few intra-articular loos e bodies. 6. Small lobulated ganglion cyst fibula head. 7. Grade 3-4 chondromalacia. Outbridge grading: grade IV: full-thickness cartilage loss with underlying bone reactive changes
== END 2025-04-20 06:58 | disposition home or self-care (01) ==
PROVIDERS: Absent Provider Student in an Organized Health Care Education/Training Program; PCP Family Medicine; Visit Provider Internal Medicine Rheumatology
DX: S83.242A Other tear of medial meniscus, current injury, left knee, initial encounter (principal); X58.XXXA Exposure to other specified factors, initial encounter; M17.12 Unilateral primary osteoarthritis, left knee; M25.462 Effusion, left knee; M22.42 Chondromalacia patellae, left knee; M67.462 Ganglion, left knee
CPT/HCPCS: 73721